=== PATIENT | male | born 1980 | race Two or more races ===

== ENCOUNTER 2017-07-30 10:14 | Outpatient (CLI) | payer OTHER | END 2017-07-30 10:22 | disposition home or self-care (01) | LOC: LAB 10:14 | DX: I10 Essential (primary) hypertension (principal); R73.09 Other abnormal glucose; E03.8 Other specified hypothyroidism; Z13.0 Encounter for screening for diseases of the blood and blood-forming organs and certain disorders involving the immune mechanism ==

== ENCOUNTER 2019-03-22 08:41 | Outpatient (CLI) | payer OTHER | END 2019-03-22 08:54 | disposition home or self-care (01) | LOC: LAB 08:41 | DX: E03.8 Other specified hypothyroidism (principal); I10 Essential (primary) hypertension; E78.2 Mixed hyperlipidemia; R73.09 Other abnormal glucose; Z12.11 Encounter for screening for malignant neoplasm of colon ==